=== PATIENT | female | born 2000 | race Hispanic/Latino ===

== ENCOUNTER 2023-01-04 13:59 | Observation (INO) | payer OTHER ==
[~2023-01-04] VITALS: Ht 160 cm; Wt 100.7 kg
[2023-01-04] MEDS ORDERED: LACTATED RINGERS 1000ML 1,000 ML IV ONE (14:34)
[2023-01-04] MEDS ORDERED: LACTATED RINGERS 1000ML 1,000 ML IV PRN (15:00)
[2023-01-04 15:04] LABS: APPEARANCE,URINE CLOUDY (CLEAR); BILIRUBIN,URINE NEGATIVE (NEGATIVE); COLOR,URINE YELLOW (YELLOW); GLUCOSE, URINE (UA) NEGATIVE (NEGATIVE); KETONES,URINE 20 mg/dL (NEGATIVE); LEUKOCYTE ESTERASE ,URINE 500 Leu/uL (NEGATIVE); NITRATE,URINE NEGATIVE (NEGATIVE); OCCULT BLOOD,URINE NEGATIVE (NEGATIVE); PH,URINE 6.5 (5.0-8.0); PROTEIN,URINE 30 mg/dL (NEGATIVE); UROBILINOGEN,URINE 0.2 mg/dL (0.2-1.0)
[2023-01-04 15:09] LABS: ADD UA MICROSCOPIC YES
[2023-01-04 15:20] LABS: BACTERIA,URINE MOD /HPF (None Seen); MUCUS,URINE FEW LPF (None Seen); SQUAMOUS EPITHELIAL CELL,UR MANY /HPF (0-2); WBC,URINE 26-50 /HPF (0-1)
== END 2023-01-04 16:07 | disposition home or self-care (01) ==
LOC: LDH 13:59
PROVIDERS: ADMIT Internal Medicine; ATTEND Internal Medicine
DX: O62.9 Abnormality of forces of labor, unspecified (principal); Z3A.37 37 weeks gestation of pregnancy; Z79.899 Other long term (current) drug therapy
CPT/HCPCS: 59025; 96360; 87077; 87088; 87186; 81001; G0378 ×2; J7120